=== PATIENT | male | born 1965 | race Caucasian/White ===

== ENCOUNTER 2019-09-09 12:32 | Emergency (ER) | payer SELFPAY ==
--- NOTE | 2019-09-09 12:34 | ED Physician Documentation ---
Chest Pain - HISTORIAN Historian: patient (-) - HPI Stated Complaint: left sided chest pain Chief Complaint: Chest Pain Additional Information: Patient presents to ED with sudden onset of left sided chest pain radiating to left shoulder, 08/08, sharp stabbing, with associated dizziness, nausea and diaphoresis. The pain lasted 2-3 minutes and resolved without intervention. He has a similar event in April which as tagged as a heat stroke. He did have a [place] Stress test a couple months ago, which was negative. He receives his care at the [facility]. Onset: minutes (30) Timing: sudden onset Last known Well Date: 09/09/19 Last Known Well Time: 12:00 Last known Well Code/Unknown Code: Known Context: rest Severity: severe Quality: sharp, stabbing Chest Pain Signs/Symptoms: nausea, diaphoresis, dizziness Worsened By: nothing Relieved By: rest - ROS CONST: none MS/LYMPH: none GI/: nausea EYES/ENT: denies: problems with vision SKIN/ENDO: denies: recent weight change NEURO/PSYCH: denies: headache - PAST HX MT risk factors: other (testoterone replacement therapy) DVT/PE Risk Factors: none TAD/AAA risk factors: none Neuro deficit: none GI disease: none Lung disease: none Surgeries/Procedures: none Allergies/Adverse Reactions: Allergies Allergy/AdvReac Type Severity Reaction Status Date / Time No Known Drug Allergies Allergy Verified 09/09/19 13:12 Home Medications: Ambulatory Orders Medication Instructions Recorded Citalopram Hydrobromide [Celexa] 10 mg PO 09/09/19 Testosterone Cypionate 09/09/19 [Depo-Testosterone] - SOCIAL HX Smoking History: quit greater than 1 year, chew Alcohol Use: none Drug Use: none - FAMILY HX Family HX: CAD under 55 (grandfather, father, brother) - REVIEWED ASSESSMENTS Nursing Assessment Reviewed: Yes Vitals Reviewed: Yes Progress - Progress Progress: 1354 Discussed chemistry machine being down to patient. He states he would like to go home and have the results called to him. is at bedside and agrees also. Patient reports he will call PCP in the morning and get a referral to Cardiology. [address] called patient with negative troponin results. reports patient is still chest pain free. Follow up instructions were reviewed, agrees with plan. - EKG/XRAY/CT Comments: 12[address] elevation ED Results Lab/Radiology - Radiology Radiology Impressions: Report Submission Date: Sep 09, 2019 1:12:27 PM ADVERTISING DIRECTOR Patient Study Name: THELMA MCCAULEY Date: Sep 09, 2019 12:40:32 PM ADVERTISING DIRECTOR Modality Type: DX Gender: M Description: CHEST 1VIEW : 69 Institution: [facility] Physician: KIA LANDA Chest 1 view Indication: CHEST PAIN Findings: Frontal view of the chest shows the lungs to be well expanded. There is no consolidation, pleural effusion, or pneumothorax. The heart size is normal. Impression: No acute pulmonary disease Electronically signed on Sep 09, 2019 1:12:27 PM ADVERTISING DIRECTOR by: Baljeet Aviles Chest Pain Physical Exam - EXAM General Appearance: no acute distress EENT: CLINT Neck: nml inspection Respiratory: no resp. distress, chest non-tender, nml breath sounds CVS: reg. rate & rhythm, no murmur Abdomen: soft, normal bowel sounds, non-tender Skin: warm/dry Extremities: non-tender Neuro: oriented X3, mood/affect nml Discharge Clincal Impression: Chest pain Qualifiers: Chest pain type: precordial pain Qualified Code(s): R07.2 - Precordial pain Referrals: Primary Doctor,No [Primary Care Provider] - 2 Days Additional Instructions: 1. We will call you with remaining lab results. 2. Call tomorrow morning to make an appointment with PCP as soon as possible. Discuss referral to Cardiology for cardiac cath/angiogram 3. If you experience more chest pain call 911. Condition: Stable Disposition: 01 HOME, SELF-CARE Decision to Admit: NO Date of Decison to Admit: 09/09/19 Decision Time: 13:57
[2019-09-09 12:48] LABS: BASOPHILS % 0.6 % (0.0-1.5); NEUTROPHILS # 4.6 # k/uL (1.4-7.7)
[2019-09-09] MEDS: PANTOPRAZOLE SODIUM 40 MG in SODIUM CHLORIDE 0.9 % (FLUSH) 10 ML IVP ONE (12:49)
[2019-09-09] MEDS: ONDANSETRON HCL/PF 4 MG/ 2ML VIAL IVP ONE (12:49)
[2019-09-09] MEDS: ASPIRIN 81 MG CHEW TAB PO ONE (13:12)
[2019-09-09 14:23] VITALS: BP 125/83
[2019-09-09 18:10] LABS: eGFR (Non-African) 60
--- NOTE | 2019-09-10 09:05 | Diagnostic Imaging Report ---
[facility] [id number] [facility] [id number] Patient Name: ZULEYKA MCCAULEY Referring Physician: KIA SHEETS Date of : 1965 Gender: M Date of Service: 09/09/2019 Exam Requested: CHEST 1VIEW Chest 1 view Indication: CHEST PAIN Findings: Frontal view of the chest shows the lungs to be well expanded. There is no consolidation, pleural effusion, or pneumothorax. The heart size is normal. Impression: No acute pulmonary disease OT
== END 2019-09-09 14:08 | disposition home or self-care (01) ==
LOC: ED 12:32 → EDUNIT# 12:32 → ED 14:08
DX: R07.2 Precordial pain (principal)
CPT/HCPCS: 71045; 80053; 83880; 84484; 85025; 93005; 96374; 99282; 99283; J2405; S1016